=== PATIENT | female | born 1995 | race Caucasian/White ===

== ENCOUNTER → 2019-08-07 12:45 | Outpatient (BNVA) | payer MEDICAID, SELFPAY | PROVIDERS: Family Provider Family Medicine; PCP Family Medicine; Visit Provider Emergency Medicine | DX: R68.89 Other general symptoms and signs (principal); J01.10 Acute frontal sinusitis, unspecified | CPT/HCPCS: 87400; 87635 ==

== ENCOUNTER → 2019-08-14 11:28 | Outpatient (BNVA) | payer SELFPAY | PROVIDERS: Family Provider Family Medicine; PCP Family Medicine; Referring Provider Obstetrics & Gynecology; Visit Provider Obstetrics & Gynecology | DX: R10.2 Pelvic and perineal pain (principal); N83.201 Unspecified ovarian cyst, right side | CPT/HCPCS: 76830 ==

== ENCOUNTER → 2019-12-10 16:30 | Outpatient (BNVA) | payer MEDICAID, SELFPAY | PROVIDERS: Family Provider Family Medicine; PCP Family Medicine; Visit Provider Obstetrics & Gynecology | DX: R87.612 Low grade squamous intraepithelial lesion on cytologic smear of cervix (LGSIL) (principal) | CPT/HCPCS: 88175 ==

== ENCOUNTER 2019-12-16 17:29 | Emergency (ER) | payer MEDICAID, SELFPAY ==
[2019-12-16 18:05] VITALS: BP 120/77; PULSE 67; RESP 18; TEMP 36.8; O2SAT 98; BMI 29.6
== END 2019-12-16 21:18 | disposition left against medical advice (07) ==
LOC: ER 18:01
PROVIDERS: Emergency Provider Emergency Medicine; PCP Family Medicine
DX: Z53.21 Procedure and treatment not carried out due to patient leaving prior to being seen by health care provider (principal)
CPT/HCPCS: 99281

== ENCOUNTER → 2020-04-27 14:36 | Outpatient (BNVA) | payer MEDICAID, SELFPAY | PROVIDERS: PCP Family Medicine; Visit Provider Obstetrics & Gynecology | DX: R10.2 Pelvic and perineal pain (principal); N83.292 Other ovarian cyst, left side; N83.201 Unspecified ovarian cyst, right side | CPT/HCPCS: 76830 ==

== ENCOUNTER → 2020-04-30 15:52 | Outpatient (BNVA) | payer MEDICAID, SELFPAY | PROVIDERS: PCP Family Medicine; Visit Provider Nurse Practitioner Family | DX: Z20.828 Contact with and (suspected) exposure to other viral communicable diseases (principal); G89.29 Other chronic pain; R10.2 Pelvic and perineal pain | CPT/HCPCS: 87635 ==

== ENCOUNTER → 2020-08-13 10:42 | Outpatient (BNVA) | payer MEDICAID, SELFPAY | PROVIDERS: PCP Family Medicine; Visit Provider Obstetrics & Gynecology | DX: Z20.822 Contact with and (suspected) exposure to COVID-19 (principal) | CPT/HCPCS: 87635 ==

== ENCOUNTER 2020-08-19 07:45 | Day surgery (SDC) | payer MEDICAID, SELFPAY ==
[2020-08-04 10:07] VITALS: BMI 31.2
--- NOTE | 2020-08-04 10:34 | P.ANESASSM_ITS ---
Pre-Anesthetic Assessment Pre-Anesthetic Assessment: Height/Weight: Height 1.57 m Weight 77.564 kg Proposed Procedure: Operation Date: 08/19/20 10:25 Proposed Procedures p Laparoscopy Diagnostic 79529 [id number] r10.2(Not Applicable) - Chase Ro MD s Hysteroscopy(Not Applicable) - Chase Jacobs MD Was Beta Valente taken within 24 hours: N/A Was Clonidine taken within 24 hours: N/A Social: Social History: No alcohol and No tobacco Exam: Pre-Anes Outpt Exam: alert, oriented x 3, clear to auscultation bilaterally and regular rate & rhythm Airway: Submandibular: WNL Cervical ROM: WNL MP: 2 Dentition: Chipped Pulmonary: Pulmonary: Asthma Metabolic: Metabolic: Morbid obesity Anesthetic Plan: ASA status: 2 Anesthesia: General Risk of > 500 ml blood loss (7ml/kg in children): No PFSH Anesthesia PFSH: Medical History Chronic back pain Reports having chronic back pain for which she takes ibuprofen and Tylenol as needed. Has taken hydrocodone in the past for this Mild intermittent asthma, uncomplicated Uses an inhaler as needed managed by her primary care provider Dr. Perez. No pertinent past medical history Denies diabetes, seizures, hypertension, DVT/PE. PMD-Dr. Perez Surgical History History of myringotomy In both ears as a young child S/P appendectomy 6th grade done via McBurney's incision per patient S/P section (~09/08/18) Primary low transverse section. Diagnosis: Nonreassuring heart tones. Performed by Dr. Chase Worthington at [facility] in [place], [place]. Documented low transverse incision with 2 layer closure. S/P tonsillectomy and adenoidectomy At age 1 Family History Grandfather Diabetes Maternal Grandmother Breast cancer Maternal; age at diagnosis unknown Hypertension mathernal Endometriosis maternal Colorectal cancer maternal Mother Hypertension Endometriosis Denies family history of Ovarian cancer Heart disease Hyperlipidemia Uterine cancer Thyroid condition Stroke Social History Smoking and tobacco status: current every day smoker Alcohol intake: never Additional social history: - Female Reproductive History: Date of last menstrual period: 07/15/20 Data Anesthesia Cardiac Studies: No Data to Display
[2020-08-19 07:15] LABS: Basophils # 0.1 10^3/uL (0.0-0.1); Basophils % 0.6 %; Eosinophils # 0.2 10^3/uL (0.0-0.8); Eosinophils % 1.9 %; Hematocrit 39.9 % (37.0-47.0); Lymphocytes # 3.6 10^3/uL (0.8-4.8); Lymphocytes % 30.5 %; Mean Corpuscular HGB Conc 32.6 g/dL (30.0-36.0); Mean Corpuscular Hemoglobin 29.3 pg (28.0-34.0); Mean Corpuscular Volume 90.1 fL (81-99); Mean Platelet Volume 9.9 fL (7.4-10.4); Monocytes # 0.9 10^3/uL (0.2-0.9); Monocytes % 7.8 %; Neutrophils # 6.98 10^3/uL (1.8-7.7); Neutrophils % 58.9 %; Nucleated Red Blood Cells % 0 %; Platelet Count 372 10^3/cmm (130-400); Red Blood Count 4.43 10^6/uL (4.1-5.3); Red Cell Distribution Width 13.4 % (12.1-15.1); White Blood Count 11.8 10^3/uL (4.0-10.0)
--- NOTE | 2020-08-19 07:41 | PM.PN ---
Subjective Subjective: Interval history: Ms. Olguin came for scheduled surgery having diagnostic laparoscopy and hysteroscopy for pelvic pain. Urine test was positive and quantitative beta-hCG done was 3716. Case canceled and care started.. Patient understands and is aware and has no questions. Or staff notified Data : 08/19/20 06:59 Attestations Medical Necessity Statement*: none Coding Level of Care Code Acute Palm And Back Forger for Chg Jony
--- NOTE | 2020-08-19 07:48 | SUR.PREOP ---
0735 dr luis here and surgery cancelled due to positive test with serum
--- NOTE | 2020-08-19 14:53 | ANE.PACU2 ---
Inpatient post-anesthesia follow up: Airway intact: Yes Vital signs: Temperature Pulse Rate Respiratory Rate Blood Pressure Pulse Oximetry Oxygen Delivery Me thod Room Air Oxygen Flow Rate Fraction of Inspir ed Oxygen Hydration adequate: Yes Nausea and vomiting: No Pain level: 1 Mental status: Baseline
== END 2020-08-19 08:01 | disposition home or self-care (01) ==
LOC: OR 12:31
PROVIDERS: PCP Family Medicine; Visit Provider Obstetrics & Gynecology
PROC: (CPT 49320; principal; 2020-08-19 08:00)
PROC: 0UJD8ZZ Inspection of Uterus and Cervix, Via Natural or Artificial Opening Endoscopic (ICD-10-PCS; CPT 58555; 2020-08-19 08:00)
DX: Z53.8 Procedure and treatment not carried out for other reasons (principal); Z32.01 Encounter for pregnancy test, result positive; O99.330 Smoking (tobacco) complicating pregnancy, unspecified trimester
CPT/HCPCS: 36415; 81025; 84702; 85025; 86850; 86900

== ENCOUNTER → 2020-09-08 09:21 | Outpatient (BNVA) | payer MEDICAID, SELFPAY | PROVIDERS: PCP Family Medicine; Visit Provider Nurse Practitioner Women's Health | DX: Z34.80 Encounter for supervision of other normal pregnancy, unspecified trimester (principal) | CPT/HCPCS: 81000; 87086 ==

== ENCOUNTER → 2020-09-21 10:55 | Outpatient (BNVA) | payer MEDICAID, SELFPAY | PROVIDERS: PCP Family Medicine; Visit Provider Obstetrics & Gynecology | DX: O21.9 Vomiting of pregnancy, unspecified (principal); Z3A.00 Weeks of gestation of pregnancy not specified | CPT/HCPCS: 80307; 81000; 85027; 86592; 86762; 86803; 86850; 86900; 87086; 87340 ==

== ENCOUNTER → 2020-10-05 13:15 | Outpatient (BNVA) | payer MEDICAID, SELFPAY | PROVIDERS: PCP Family Medicine; Visit Provider Obstetrics & Gynecology | DX: Z34.90 Encounter for supervision of normal pregnancy, unspecified, unspecified trimester (principal) | CPT/HCPCS: 81000; 87491; 87591; 88175 ==

== ENCOUNTER → 2020-11-10 09:39 | Outpatient (BNVA) | payer MEDICAID, SELFPAY | PROVIDERS: PCP Family Medicine; Visit Provider Nurse Practitioner Women's Health | DX: Z34.80 Encounter for supervision of other normal pregnancy, unspecified trimester (principal) | CPT/HCPCS: 81000 ==

== ENCOUNTER → 2020-12-06 15:22 | Outpatient (BNVA) | payer MEDICAID, SELFPAY | PROVIDERS: PCP Family Medicine; Visit Provider Obstetrics & Gynecology | DX: Z34.80 Encounter for supervision of other normal pregnancy, unspecified trimester (principal) | CPT/HCPCS: 80307; 81000 ==

== ENCOUNTER → 2020-12-31 11:43 | Outpatient (BNVA) | payer MEDICAID, SELFPAY | PROVIDERS: PCP Family Medicine; Visit Provider Nurse Practitioner Women's Health | DX: Z34.80 Encounter for supervision of other normal pregnancy, unspecified trimester (principal) | CPT/HCPCS: 81000 ==

== ENCOUNTER → 2021-01-24 14:18 | Outpatient (BNVA) | payer MEDICAID, SELFPAY | PROVIDERS: PCP Family Medicine; Visit Provider Obstetrics & Gynecology | DX: Z34.80 Encounter for supervision of other normal pregnancy, unspecified trimester (principal) | CPT/HCPCS: 81000; 82950; 85027 ==

== ENCOUNTER → 2021-02-08 11:04 | Outpatient (BNVA) | payer MEDICAID, SELFPAY | PROVIDERS: PCP Family Medicine; Visit Provider Nurse Practitioner Women's Health | DX: Z34.80 Encounter for supervision of other normal pregnancy, unspecified trimester (principal) | CPT/HCPCS: 80307; 81000 ==

== ENCOUNTER → 2021-02-22 09:19 | Outpatient (BNVA) | payer MEDICAID, SELFPAY | PROVIDERS: PCP Family Medicine; Visit Provider Obstetrics & Gynecology | DX: Z34.80 Encounter for supervision of other normal pregnancy, unspecified trimester (principal) | CPT/HCPCS: 81000 ==

== ENCOUNTER → 2021-03-08 08:11 | Outpatient (BNVA) | payer MEDICAID, SELFPAY | PROVIDERS: PCP Family Medicine; Visit Provider Nurse Practitioner Women's Health | DX: Z34.80 Encounter for supervision of other normal pregnancy, unspecified trimester (principal) | CPT/HCPCS: 81000 ==

== ENCOUNTER → 2021-03-22 11:29 | Outpatient (BNVA) | payer MEDICAID, SELFPAY | PROVIDERS: PCP Family Medicine; Visit Provider Obstetrics & Gynecology | DX: Z34.80 Encounter for supervision of other normal pregnancy, unspecified trimester (principal) | CPT/HCPCS: 81000; 87081 ==

== ENCOUNTER → 2021-03-29 09:33 | Outpatient (BNVA) | payer MEDICAID, SELFPAY | PROVIDERS: PCP Family Medicine; Visit Provider Obstetrics & Gynecology | DX: Z34.80 Encounter for supervision of other normal pregnancy, unspecified trimester (principal) | CPT/HCPCS: 81000; 87086 ==

== ENCOUNTER → 2021-04-05 08:06 | Outpatient (BNVA) | payer MEDICAID, SELFPAY | PROVIDERS: PCP Family Medicine; Visit Provider Nurse Practitioner Women's Health | DX: Z34.80 Encounter for supervision of other normal pregnancy, unspecified trimester (principal) | CPT/HCPCS: 81000 ==

== ENCOUNTER → 2021-04-12 14:30 | Outpatient (BNVA) | payer MEDICAID, SELFPAY | PROVIDERS: PCP Family Medicine; Visit Provider Nurse Practitioner Women's Health | DX: Z34.80 Encounter for supervision of other normal pregnancy, unspecified trimester (principal) | CPT/HCPCS: 81000; 87635; 87801 ==

== ENCOUNTER 2021-04-16 21:55 | Outpatient (CLI) | payer MEDICAID, SELFPAY ==
[2021-04-16 22:05] VITALS: BP 105/77; PULSE 103
[2021-04-16 22:30] VITALS: BP 105/77; PULSE 103
[2021-04-16 22:51] VITALS: BP 108/68; PULSE 79
[2021-04-16 23:11] VITALS: BP 100/72; PULSE 83
[2021-04-16 23:30] VITALS: BP 118/72; PULSE 90
[2021-04-16 23:45] LABS: Add Urine Culture? No; Amorphous Sediment Urine 1+ /hpf; Bacteria Urine TRACE /hpf; Bilirubin Urine Neg (Negative); Blood Urine Neg (Negative); Glucose Urine UA Norm (Normal); Ketones Urine Negative (Negative); Leukocyte Esterase Urine Negative (Negative); Nitrate Urine Negative (Negative); Protein Urine Neg (Negative); RBC Urine 0-4 /hpf (0-2); Specific Gravity, Urine 1.005 (1.005-1.030); Urine Appearance Clear (CLEAR); Urine Color Yellow (Yellow); Urobilinogen Urine Norm (Negative); WBC Urine 0-4 /hpf (0-5); pH Urine 6 (5-7)
[2021-04-16 23:51] VITALS: BP 110/72; PULSE 85
[2021-04-17] VITALS (24 sets, daily range): BP systolic 106–130; BP diastolic 59–83; PULSE 64–115; RESP 16; TEMP 36.1
[2021-04-17 01:58] LABS: Basophils % 0.3 %; Eosinophils # 0.2 10^3/uL (0.0-0.8); Eosinophils % 1.9 %; Hematocrit 28.4 % (37.0-47.0); Hemoglobin 9.2 g/dL (11.5-15.3); Lymphocytes % 24.1 %; Mean Corpuscular HGB Conc 32.4 g/dL (30.0-36.0); Mean Corpuscular Volume 86.6 fl (81-99); Mean Platelet Volume 10.3 fL (7.4-10.4); Monocytes # 0.7 10^3/uL (0.2-0.9); Monocytes % 5.4 %; Neutrophils # 8.49 10^3/uL (1.8-7.7); Neutrophils % 67.9 %; Nucleated Red Blood Cells % 0 %; Platelet Count 343 10^3/cmm (130-400); Red Blood Count 3.28 10^6/uL (4.1-5.3); White Blood Count 12.5 10^3/uL (4.0-10.0)
[2021-04-17 02:30] LABS: Amphetamines Screen Urine Negative (Negative); Barbiturates Screen Urine Negative (Negative); Benzodiazepines Screen Urine Negative (Negative); Cocaine Screen Urine Negative (Negative); Opiate Screen Urine Negative (Negative); PCP Screen Urine Negative (Negative); THC Screen Urine Negative (Negative)
[2021-04-17] MEDS: fentaNYL 50 mcg/mL INJ 2mL IVP (02:48)
[2021-04-18 06:48] VITALS: BP 111/68; PULSE 85
== END 2021-04-17 09:25 | disposition home or self-care (01) ==
LOC: OPOB 22:13 → OBGYN 22:22
PROVIDERS: PCP Family Medicine; Visit Provider Obstetrics & Gynecology
DX: O26.899 Other specified pregnancy related conditions, unspecified trimester (principal); Z3A.00 Weeks of gestation of pregnancy not specified; R10.9 Unspecified abdominal pain
CPT/HCPCS: 36415; 59025; 80306; 81001; 83986; 85025; 99211; J3010

== ENCOUNTER 2021-04-18 05:06 | Inpatient (IN) | payer MEDICAID, SELFPAY ==
--- NOTE | 2021-04-17 19:12 | PM.OPHPUD ---
Labor & Delivery H&P Update Date of Procedure: April 17, 2021 Date H&P Performed: 03/29/21 H&P update information: I have reviewed H&P completed within last 30 days, I have examined patient prior to procedure and No changes to prior documentation Admission Diagnosis: Preop diagnosis: Pelvic pain Planned procedure: Operation Date: 04/18/21 07:00 Proposed Procedures p Section Repeat 82134 O34.219(Not Applicable) - Chase Jacobs MD
--- NOTE | 2021-04-17 19:12 | PM.PN ---
Subjective Subjective: Interval history: The patient was observed overnight. She had no further change to her cervix. Her contractions had spaced out. Her pain was 4/10. She was ok with being discharged to home. Medications: Reviewed: Yes A&P Assessment and plan (1) False labor: no further cervical change. home in stable condition will return tomorrow for scheduled Status: Acute Attestations Medical Necessity Statement*: the patient was only admitted for observation Coding Level of Care Code Acute Saw Superintendent [facility] Diagnoses False labor O47.9
--- NOTE | 2021-04-17 19:15 | PM.OPHPUD ---
Labor & Delivery H&P Update Date of Procedure: April 17, 2021 Date H&P Performed: 03/29/21 H&P update information: I have reviewed H&P completed within last 30 days and Changes to prior documentation as noted here Changes to previous documentation: The patient had cervical change to a tight 2 cm. It was a slight change, but with the continued contractions and the patient's complaint of pain. She will be admitted for observation. Admission Diagnosis: Preop diagnosis: Pelvic pain Planned procedure: Operation Date: 04/18/21 07:00 Proposed Procedures p Section Repeat 86557 O34.219(Not Applicable) - Chase Jacobs MD
--- NOTE | 2021-04-17 19:16 | P.DS_ITS ---
Discharge Providers Date of Discharge: April 17, 2021 Attending Provider at Admission: Chase Jacobs MD Attending Provider at Discharge: Chase Jacobs MD Primary Care Provider: aCrmen Costa DO Diagnoses at Discharge Discharge Diagnosis (1) False labor: Status: Acute Reason for Visit Reason for Visit: Previous section Hospital Course Hospital Course The patient was admitted for contractions and cervical change. She is scheduled for repeat for tomorrow. She wants to be allowed to labor if she has spontaneous labor. She was admitted for observation since she was having regular contractions and had made a small amount of cervical change. With her previous , I wanted to observe her contractions and the heart rate tracing. Her contractions spaced out and became less painful. She didn't make any further cervical change. She was discharged in stable condition. Discharge Plan Discharge Patient Disposition: Home Condition: Stable Prescriptions: Continued loratadine [Claritin] 10 mg tablet 10 mg PO DAILY PRN (Reason: Allergy Symptoms) RF: 0 ferrous sulfate 325 mg (65 mg iron) tablet,delayed release (DR/EC) 325 mg PO BID Qty: 90 RF: 1 Discharge Orders: Discharge Order (Routine); Ordered 04/17/21 Ordered By: Agueda Grimes Patient Instructions: Opioid Safety Discharge Attestations Time Spent in Discharge Care*: less than 30 min Quality Metrics Clinical Quality Measures During this hospital stay, did patient experience: None Coding Level of Care Code Acute [facility] note Diagnoses False labor O47.9
[2021-04-18] VITALS (26 sets, daily range): BP systolic 103–128; BP diastolic 66–89; PULSE 55–104; RESP 17; TEMP 36.2–36.8; O2SAT 94–98; BMI 29.7
[2021-04-18 05:33] LABS: Basophils % 0.2 %; Eosinophils # 0.2 10^3/uL (0.0-0.8); Hematocrit 30.1 % (37.0-47.0); Hemoglobin 9.8 g/dL (11.5-15.3); Lymphocytes # 2.8 10^3/uL (0.8-4.8); Lymphocytes % 25.8 %; Mean Corpuscular HGB Conc 32.6 g/dL (30.0-36.0); Mean Corpuscular Hemoglobin 28.2 pg (28.0-34.0); Mean Corpuscular Volume 86.7 fl (81-99); Mean Platelet Volume 9.8 fL (7.4-10.4); Monocytes # 0.6 10^3/uL (0.2-0.9); Monocytes % 5.9 %; Neutrophils # 7.03 10^3/uL (1.8-7.7); Neutrophils % 65.4 %; Nucleated Red Blood Cells % 0 %; Platelet Count 360 10^3/cmm (130-400); Red Blood Count 3.47 10^6/uL (4.1-5.3); Red Cell Distribution Width 13.2 % (12.1-15.1); White Blood Count 10.8 10^3/uL (4.0-10.0)
--- NOTE | 2021-04-18 06:11 | PC.NURSE ---
Room mate, parth, is her support person and her mother is involved.
--- NOTE | 2021-04-18 06:22 | W.PM.OPSUD ---
Surgery/Procedure H&P Update DATE OF PROCEDURE: April 18, 2021 DATE H&P PERFORMED: 04/12/21 H&P UPDATE INFORMATION: I have reviewed H&P completed within last 30 days, I have examined patient prior to procedure, No changes to prior documentation and H&P is in [facility] [place] on date indicated PREOP DIAGNOSIS: previous CD X 1 PLANNED PROCEDURE: Operation Date: 04/18/21 07:00 Proposed Procedures p Section Repeat 80090 O34.219(Not Applicable) - Chase Jacobs MD
[2021-04-18] MEDS: citric acid-sodium citrate 30 mL UDC PO (06:39)
[2021-04-18] MEDS: famotidine 20 mg/2 mL INJ IVP (06:39)
[2021-04-18] MEDS: metoclopramide 5 mg/mL SDV 2 mL 10 MG IVP (06:40)
--- NOTE | 2021-04-18 07:55 | P.ANESASSM_ITS ---
Pre-Anesthetic Assessment Pre-Anesthetic Assessment: Height/Weight: Height 1.6 m Weight 76.204 kg Pulse BP 104 H 128/83 04/18/21 05:08 04/18/21 05:08 Preop Diagnosis: previous CD X 1 Proposed Procedure: Operation Date: 04/18/21 07:00 Proposed Procedures p Section Repeat 89068 O34.219(Not Applicable) - Chase Jacobs MD Was Beta Valente taken within 24 hours: N/A Was Clonidine taken within 24 hours: N/A Last intake: Intake Last Liquid Date 04/17/21 Last Liquid Time 23:00 Last Solid Date 04/17/21 Last Solid Time 19:00 Social: Social History: Tobacco and No alcohol Exam: Pre-Anes Outpt Exam: alert, oriented x 3, clear to auscultation bilaterally and regular rate & rhythm Airway: Submandibular: WNL Cervical ROM: WNL MP: 1 Dentition: Chipped Pulmonary: Pulmonary: Asthma CV/HEM: CV/HEM: None reported : : None reported Hepatic: Hepatic: None reported GI: GI: None reported Metabolic: Metabolic: None reported Musc/skel: Musc/skel: Lower Back Pain Neuropsych: Neuropsych: None reported Anesthetic Plan: ASA status: 2 Anesthesia: Anesthesia Evaluation and Regional (specify below) Other: Late entry. Patient seen and evaluated and consented by myself in pre-op clinic. Patient seen and evaluated today prior to OR. We discussed risk and benefits discussed. Plan spinal. Risk of > 500 ml blood loss (7ml/kg in children): Yes, adequate IV access and fluids planned PFSH Anesthesia PFSH: Medical History Chronic back pain Reports having chronic back pain for which she takes ibuprofen and Tylenol as needed. Has taken hydrocodone in the past for this Mild intermittent asthma, uncomplicated Uses an inhaler as needed managed by her primary care provider Dr. Perez. No pertinent past medical history Denies diabetes, seizures, hypertension, DVT/PE. PMD-Dr. Perez Surgical History History of myringotomy In both ears as a young child S/P appendectomy 6th grade done via McBurney's incision per patient S/P section (~09/08/18) Primary low transverse section. Diagnosis: Nonreassuring heart tones. Performed by Dr. Chase Worthington at [facility] in [place], [place]. Documented low transverse incision with 2 layer closure. S/P tonsillectomy and adenoidectomy At age 1 Family History Grandfather Diabetes Maternal Grandmother Breast cancer Maternal; age at diagnosis unknown Hypertension maternal Endometriosis maternal Colorectal cancer maternal Mother Hypertension Endometriosis Denies family history of Ovarian cancer Heart disease Hyperlipidemia Uterine cancer Thyroid condition Stroke Female Reproductive History: Date of last menstrual period: 12/16/19 Gravi da: 2 Data Anesthesia CBC & Chem 7: 04/18/21 05:27 Other Labs: Laboratory Results - last 48 hr 04/18/21 05:27 WBC 10.8 H RBC 3.47 L Hgb 9.8 L Hct 30.1 L MCV 86.7 MCH 28.2 MCHC 32.6 RDW 13.2 Plt Count 360 MPV 9.8 Neut % (Auto) 65.4 Lymph % (Auto) 25.8 [place] % (Auto) 5.9 Eos % (Auto) 2.0 Baso % (Auto) 0.2 Neut # (Auto) 7.03 Lymph # (Auto) 2.8 [place] # (Auto) 0.6 Eos # (Auto) 0.2 Baso # (Auto) 0.0 Nucleated RBC % (auto) 0 Nucleated RBCs # 0.0 Cardiac Studies: No Data to Display
--- NOTE | 2021-04-18 07:58 | ANES.PROC ---
Anesthesia Procedures Procedure/Date: 04/18/21 Spinal anesthetic for C section. Procedure Narrative: Patient sat up in usual fashion. Monitors. 10 LPM simple mask. Time out at 0658. Prepped with Chloraprep, draped. Skin wheel with 1% lidocaine. Introducer placed. 24 g Pencan placed through introducer with stylet. Unable to find interspace. Introducer withdrawn to level of skin but not out of skin and repositioned. Spinal needle through introducer with stylet. Dura encountered. Positive CSF. Smooth injection morphine PF 0.15 mg, 20 mcg fentanyl PF, and heavy bupivacaine 0.75%. Patient laid down. Good block, tolerated well.
--- NOTE | 2021-04-18 08:31 | PM.OP ---
Operative Report Date of procedure: April 18, 2021 OPERATIVE REPORT Date of surgery: 04/18/2021 Date of dictation: 04/18/2021 Preoperative diagnosis: 25-year-old 2 para 1-0-0-1 at 39 weeks and 6 days, previous delivery x1 declining trial of labor Postoperative diagnosis/findings: Same, baby girl-Scarlet weighing 6 pounds 4 ounces, 2835 g, 18.5 inches long. Apgars 8/9. Bladder adhesions onto uterus-omental adhesions onto anterior abdominal wall-filmy Procedure done: Repeat delivery via Pfannenstiel incision-low transverse incision Specimens removed/disposition of specimens: Placenta and cord which were discarded Surgeon: Dr. Chase Worthington Casket Upholsterer: Citlaly Rick Anesthesia: Spinal anesthesia Estimated blood loss: 800 ml Intravenous fluids: 2200 mL of LR Urine output: 100 mL of clear urine at the end of procedure Medications: As per anesthesia records Complications: None, patient was left to recover in a stable condition PROCEDURE: After consent was obtained, patient was taken to the operating room where spinal anesthesia was placed without difficulty. She was placed supine on the table with a left lateral wedge. Newton catheter and SCDs were placed. The abdomen was shaved and then prepped with duo prep. She was draped in a sterile fashion. After checking adequacy of anesthesia, a Pfannenstiel incision was made 2 cm above the pubic symphysis at the level of her old incision. The incision was carried down to the fascia using the Bovie. The fascia was nicked in the midline and the fascial incision was extended laterally using curved Mayos. The inferior aspect of the fascia was grasped with livia clamps and dissected off from the underlying rectus muscle. This was repeated again superiorly without any difficulty. The rectus muscle was sharply. A stuart was made in the peritoneum and the peritoneal incision was carried inferiorly taking care to proceed in layers so as to avoid the bladder. The peritoneal incision was extended superiorly as well. Few filmy omental adhesions onto the anterior abdominal wall/peritoneum were noted which were taken down with the Bovie without any difficulty. No adhesions were noted from the uterus to the anterior abdominal wall. The uterus was noted to be rotated to the left. The bladder peritoneum was grasped with smooth forceps a bladder flap was created. the bladder blade was replaced thus protecting the bladder. A LOW TRANSVERSE UTERINE INCISION was made with a scalpel till the amniotic membrane was reached. The uterine incision was then extended laterally using bandage scissors. Amniotomy was done with Allis clamps and clear amniotic fluid was drained. The head of the baby was brought up to the level of the incision and delivered with fundal pressure. The remainder of body followed without any difficulty. The nose and mouth were suctioned, the umbilical cord was clamped and cut and the baby was handed off to the waiting wig sales consultant, Dr. Tsai. The placenta was delivered spontaneously with fundal massage. It was noted to be intact and was discarded. The interior of the uterus was cleaned of all clot and debris and was noted to be miguel angel well. The uterus was exteriorized. The uterine incision was closed with 0 Vicryl in a running interlocking manner. Good hemostasis and reapproximation was obtained. Interrupted [id number] sutures were placed to obtain hemostasis and reapproximation. The abdomen was irrigated and the gutters were cleaned of clot and debris. Normal tubes and ovaries were noted bilaterally. The uterus was placed back into the abdomen and uterine incision was noted to be hemostatic. The peritoneum was closed with a 2-0 plain in a continuous stitch. The rectus muscle was reapproximated with 2-0 plain suture in a mattress stitch. Good hemostasis was noted in the rectus muscle layer. The fascia was inspected for any defects and none were found and the fascia was closed with 0 looped PDS in continuous stitch. The subcutaneous plane was then irrigated and hemostasis was obtained using the Bovie. The subcutaneous plane was then reapproximated using 0 Vicryl in a continuous manner. The skin was then closed with 4-0 Monocryl in a subcuticular fashion. Good reapproximation and hemostasis was noted. Steri-Strips were applied. The incision was dressed with Telfa ,ABD and paper tape. The fundus was noted to be firm at the end of the procedure and excess blood was expressed from the vagina. The patient was left to recover in a stable condition. This documentation was created by [employer] instrument lens grinder apprentice software (known for inherent instrument lens grinder apprentice error). Every effort was made to assure accuracy of instrument lens grinder apprentice. Any obvious errors or omissions should be clarified with the author of the document. Pre-op Diagnosis: previous CD X 1 History History History 2 Term 2 Miscarriages/Ectopic 0 0 Living Children 2 Other History: -0-0-2, CD x 2. 1---->09/08/2018---->Male(Elie), 6 pounds (2715 g), 40-3/7 weeks gestation. Epidural. Primary section. Performed by Dr. Worthington at [facility] in [place], [place]. Complicated by: Nonreassuring heart tones, endometritis. 2--> 04/18/2021---female(lila), 6 pounds 4 ounces(2835 g), scheduled repeat delivery low transverse at 39 weeks and [address] Worthington at [facility]. Minimal adhesions of omentum onto anterior abdominal wall and bladder additions were noted.
[2021-04-18] MEDS: HYDROcodone-acetaminophen 5-325 mg Tablet PO ×2 (11:14→19:19)
[2021-04-18] MEDS: docusate sodium 100 mg Capsule PO ×2 (11:14→18:10)
[2021-04-18] MEDS: alum-mag-hydroxide-sime 30 mL UDC PO (12:50)
--- NOTE | 2021-04-18 13:28 | ANE.PACU2 ---
Inpatient post-anesthesia follow up: Airway intact: Yes Vital signs: Temperature 98.3 F Pulse Rate 55 Respiratory Rate 17 Blood Pressure 110/72 Pulse Oximetry 98 Oxygen Delivery Me thod Room Air Oxygen Flow Rate Fraction of Inspir ed Oxygen Hydration adequate: Yes Nausea and vomiting: No Pain level: 2 Mental status: Baseline
[2021-04-18] MEDS: dextrose 5%-lactated ringers 1,000 ML 125 ML IV (18:10)
[2021-04-18] MEDS: sodium chloride 0.9% 500 ML 999 ML IV (19:03)
[2021-04-18] MEDS: ferrous sulfate EC 325 mg Tablet PO (19:03)
[2021-04-18 20:18] LABS: Hematocrit 29.3 % (37.0-47.0); Hemoglobin 9.5 g/dL (11.5-15.3); Mean Corpuscular HGB Conc 32.4 g/dL (30.0-36.0); Mean Corpuscular Hemoglobin 28.4 pg (28.0-34.0); Mean Corpuscular Volume 87.7 fl (81-99); Platelet Count 316 10^3/cmm (130-400); Red Blood Count 3.34 10^6/uL (4.1-5.3); Red Cell Distribution Width 13.2 % (12.1-15.1); White Blood Count 14.5 10^3/uL (4.0-10.0)
[2021-04-19] MEDS: HYDROcodone-acetaminophen 5-325 mg Tablet PO ×4 (01:04→20:57)
[2021-04-19 03:54] VITALS: BP 117/83; PULSE 81; TEMP 36.9; O2SAT 96
[2021-04-19] MEDS: ibuprofen 800 mg tablet PO ×3 (07:42→20:57)
[2021-04-19] MEDS: prenatal vitamin Capsule 1 CAP PO (07:43)
[2021-04-19] MEDS: ferrous sulfate EC 325 mg Tablet PO ×2 (07:43→18:10)
[2021-04-19] MEDS: docusate sodium 100 mg Capsule PO ×2 (07:43→18:10)
[2021-04-19 10:00] VITALS: BP 115/74; PULSE 74; RESP 16; TEMP 36.9; O2SAT 97
[2021-04-19 16:30] VITALS: BP 108/83; PULSE 76; RESP 18; TEMP 36.6; O2SAT 99
--- NOTE | 2021-04-19 17:45 | PM.PN ---
Subjective Subjective: Interval history: SUBJECTIVE: Ms. Olguin is doing well today. She is a little sore but states that overall pain is well controlled. She denies heavy vaginal bleeding, fever, chills, shortness of breath and chest pain. She has not yet passed flatus but can feel her belly rumble. She denies nausea, vomiting, chest pain, shortness of breath. She has been voiding without difficulty since the catheter has been removed. She is planning breast-feeding hard and she states that the baby is not latching very well. She is considering supplementing and has a few questions about this. OBJECTIVE/PHYSICAL EXAM: Gen.: No acute distress Heart: S1-S2 heard, regular rate and rhythm Lungs: Clear to auscultation bilaterally Abdomen: Soft, fundus firm below umbilicus, tenderness around incision. Incision: Clean dry and intact with Steri-Strips. Legs: No calf tenderness, trace bilateral pitting pedal edema. ASSESSMENT AND PLAN: 25-year-old 2 para 2-0-0-2 status post repeat delivery, postoperative day #1 -Doing well-continue routine postoperative care -Vital signs stable, hemoglobin stable--anemia-continue iron -P.o. pain medication as needed, encourage ambulation and incentive spirometer use -Continue full liquid diet until she passes flatus and then advance to regular diet, IV can be discontinued when she tolerates full liquid diet -Anticipate discharge home in the next couple of days as she needs to stay to recover from surgery Vitals/I&O/Wt Last Vital Signs Temp 98.4 F 04/19/21 10:00 Pulse 74 04/19/21 10:00 Resp 16 04/19/21 10:00 BP 115/74 04/19/21 10:00 Pulse Ox 97 04/19/21 10:00 04/19/21 04/19/21 04/19/21 06:59 14:59 22:59 Intake Total 1000 / 1000 Output Total 1600 / 3000 1300 / 1300 Balance -1600 / -2950 -300 / -300 Weight last 48 hrs Weight 168 lb Weight 167 lb 15.876 oz Physical Exam Urinary Catheter Management^: Newton: Cath Placed During This Visit: yes, but has since been removed by the nurse Reason for Continuing Indwelling Catheter: Decision to DC Catheter Urinary Catheter Date of Insertion: 04/18/21 Urinary Catheter Time of Insertion: 07:00 Date Urinary Catheter Removed: 04/19/21 Time Urinary Catheter Discontinued: 00:00 Data : 04/18/21 20:10 Attestations Medical Necessity Statement*: Patient needs to stay for 1-2 more midnights to recover from surgery Coding Level of Care Code Acute Air Conditioning Unit Tester for Froylan Borges
[2021-04-19 22:00] VITALS: BP 126/88; PULSE 87; RESP 16; TEMP 36.7; O2SAT 95
[2021-04-20] MEDS: HYDROcodone-acetaminophen 5-325 mg Tablet PO ×2 (03:34→07:47)
[2021-04-20 04:05] VITALS: BP 129/77; PULSE 70; TEMP 36.6; O2SAT 98
--- NOTE | 2021-04-20 06:58 | PM.OBGYDC ---
Discharge Providers MEDICAL RECORDS AUDITOR Date of Admission: 04/18/21 05:06 Date of Discharge: 04/20/21 Attending Provider at Admission: Chase Jacobs MD Attending Provider at Discharge: Chase Jacobs MD Primary Care Provider: Date of surgery: 04/18/2021 Preoperative diagnosis: 25-year-old 2 para 1-0-0-1 at 39 weeks and 6 days, previous delivery x1 declining trial of labor Postoperative diagnosis/findings: Same, baby girl-Scarlet weighing 6 pounds 4 ounces, 2835 g, 18.5 inches long. Apgars 8/9. Bladder adhesions onto uterus-omental adhesions onto anterior abdominal wall-filmy Procedure done: Repeat delivery via Pfannenstiel incision-low transverse incision Specimens removed/disposition of specimens: Placenta and cord which were discarded Surgeon: Dr. Chase Worthington Anesthesia: Spinal anesthesia Delivery: Ms. Olguin is a 25-year-old 2 para 1-0-0-1 at 39 weeks and 6 days who presented to labor and delivery on 04/18/2021 for scheduled repeat delivery. She had 1 previous delivery and declined trial of labor and presented for scheduled surgery. She had no new changes since I last seen her and had no questions. She continues to desire repeat . HOSPITAL COURSE: She underwent an uncomplicated scheduled repeat delivery on 04/18/2021. She did well on day 0 and was ambulating well, tolerating regular diet, voiding freely. She was breast-feeding and supplementing with formula and bonding well with her daughter. Pain was well-controlled with by mouth pain medication. She denied nausea, vomiting, fever, chills, shortness of breath, leg pain. She had moderate vaginal bleeding. On day # 1 she continued to do well with stable vital signs and stable hemoglobin at 9.5 from a preoperative value of 9.8. She passed flatus and tolerated regular diet without any difficulty and continued to do well. Incision was clean dry and intact. She continued to do well on day #2. She was discharged home on day 2 in a stable condition, as she desired early discharge. Warning signs for endometritis, mastitis, wound infection, DVT/PE were reviewed with her. Post delivery activity restrictions were also reviewed with her at all her questions were answered to her satisfaction. Desires a Mirena for contraception and this appointment was scheduled prior to her discharge. EXAM AT DISCHARGE: Gen.: No acute distress Heart: S1-S2 heard, regular rate and rhythm Lungs: Clear to auscultation bilaterally Abdomen: Soft, fundus firm below umbilicus, tenderness around incision. Incision: Clean dry and intact with Steri-Strips. Legs: No calf tenderness, trace bilateral pitting pedal edema. CONDITION AT DISCHARGE: Stable This documentation was created by [employer] mba internship software (known for inherent mba internship error). Every effort was made to assure accuracy of mba internship. Any obvious errors or omissions should be clarified with the author of the document. Diagnoses at Discharge Discharge Diagnosis (1) False labor: Status: Resolved Reason for Visit Reason for Visit: section Information Peripartum Data: Infant Delivery Method: Physical Exam Urinary Catheter Management^: [place]: Cath Placed During This Visit: yes, but has since been removed by the nurse Reason for Continuing Indwelling Catheter: Decision to DC Catheter Urinary Catheter Date of Insertion: 04/18/21 Urinary Catheter Time of Insertion: 07:00 Date Urinary Catheter Removed: 04/19/21 Time Urinary Catheter Discontinued: 00:00 History History History 2 Term 2 Miscarriages/Ectopic 0 0 Living Children 2 Other History: -0-0-2, CD x 2. 1---->09/08/2018---->Male(Elie), 6 pounds (2715 g), 40-3/7 weeks gestation. Epidural. Primary section. Performed by Dr. Worthington at [facility] in [place], [place]. Complicated by: Nonreassuring heart tones, endometritis. 2--> 04/18/2021---female(scarlet), 6 pounds 4 ounces(2835 g), scheduled repeat delivery low transverse at 39 weeks and [address] Worthington at [facility]. Minimal adhesions of omentum onto anterior abdominal wall and bladder additions were noted. Discharge Data Vitals: Last Vital Signs Temp 97.9 F 04/20/21 04:05 Pulse 70 04/20/21 04:05 Resp 16 04/19/21 22:00 BP 129/77 12/29/21 04:05 Pulse Ox 98 04/20/21 04:05 Discharge Plan Discharge Patient Disposition: Home Condition: Stable Prescriptions: New ibuprofen 800 mg tablet 800 mg PO Q8H Qty: 30 RF: 0 hydrocodone-acetaminophen 5-325 mg tablet 1 tab PO Q6H Qty: 25 RF: 0 docusate sodium 100 mg Capsule 100 mg PO BID PRN (Reason: constipation) Qty: 30 RF: 0 Continued ferrous sulfate 325 mg (65 mg iron) tablet,delayed release (DR/EC) 325 mg PO BID Qty: 90 RF: 1 1 tab PO DAILY RF: 0 Discharge Orders: Discharge Order (Routine); Ordered 04/20/21 Ordered By: Chase Jacobs Referrals: Chase Jacobs MD [Physician] - Discharge Diet: Regular Discharge Activity: Limit activity as instructed Patient Instructions: Opioid Safety Activity Restrictions/Additional Instructions: Pelvic rest for 6 weeks, no heavy lifting for 6 weeks 2-week incision check, 6-week visit, 7-week IUD insertion Discharge Attestations MEDICAL RECORDS AUDITOR Time Spent in Discharge Care*: greater than 30 min Coding Level of Care Code Acute Cataract Lens Generator for Chg Fwd Diagnoses False labor O47.9
[2021-04-20] MEDS: prenatal vitamin Capsule 1 CAP PO (07:46)
[2021-04-20] MEDS: ferrous sulfate EC 325 mg Tablet PO (07:47)
[2021-04-20] MEDS: ibuprofen 800 mg tablet PO (11:09)
[2021-04-20] MEDS: docusate sodium 100 mg Capsule PO (11:09)
[2021-04-20 11:15] VITALS: BP 111/80; PULSE 99; RESP 16; TEMP 36.7; O2SAT 97
== END 2021-04-20 11:55 | disposition home or self-care (01) | DRG 788 ==
PROVIDERS: Admitting Provider Obstetrics & Gynecology; PCP Family Medicine; Visit Provider Obstetrics & Gynecology
PROC: 10D00Z1 Extraction of Products of Conception, Low, Open Approach (ICD-10-PCS; CPT 59514; principal; 2021-04-18 07:00)
DX: O34.211 Maternal care for low transverse scar from previous cesarean delivery (principal); Z3A.39 39 weeks gestation of pregnancy; Z37.0 Single live birth; O99.334 Smoking (tobacco) complicating childbirth; F17.210 Nicotine dependence, cigarettes, uncomplicated; O99.02 Anemia complicating childbirth; D64.9 Anemia, unspecified; O75.89 Other specified complications of labor and delivery; J45.20 Mild intermittent asthma, uncomplicated; G89.29 Other chronic pain; M54.9 Dorsalgia, unspecified
CPT/HCPCS: 36415; 51702; 85025; 85027; 86850; 86900; J2274; J2765; J3010; J3490; J7030; J7040

== ENCOUNTER → 2021-06-21 14:58 | Outpatient (BNVA) | payer MEDICAID, SELFPAY | PROVIDERS: PCP Family Medicine; Visit Provider Obstetrics & Gynecology | DX: Z30.9 Encounter for contraceptive management, unspecified (principal) | CPT/HCPCS: 81025 ==